=== PATIENT | male | born 1970 | race Caucasian/White ===

== ENCOUNTER → 2017-11-25 | Outpatient (CLI) | payer OTHER | LOC: FIMAGING 16:32 | PROVIDERS: ATTEND Family Medicine | DX: R07.89 Other chest pain (principal) ==

== ENCOUNTER 2018-11-27 16:51 | Emergency (ER) | payer OTHER ==
--- NOTE | 2018-11-27 16:56 | EDPHY ---
H & P Time Seen by Provider: 11/27/18 16:55 HPI/ROS: HPI CHIEF COMPLAINT: Left index finger avulsion laceration. HISTORY OF PRESENT ILLNESS: This patient is a 48-year-old male, otherwise healthy, reports to me his tetanus shot is up-to-date presents emergency room with a left index finger distal tip avulsion laceration. This happened 45 min ago he was cutting a ham at home the knife slipped and he cut his left index finger. He denies any significant other complaints. He does tell me his tetanus shot is up-to-date. He applied liquid Band-Aid to it prior to arrival. Right hand dominant. Left hand laceration. Past Medical History: Denies medical history Past Surgical History: Denies surgical history Social History: Denies drugs alcohol tobacco. 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 Family History: Noncontributory ROS REVIEW OF SYSTEMS: 10 Systems were reviewed and negative with the exception of the elements mentioned in the history of present illness. Exam Constitutional triage nursing summary reviewed, vital signs reviewed, awake/ alert. Eyes normal conjunctivae and sclera, EOMI, PERRLA. HENT normal inspection, atraumatic, moist mucus membranes, no epistaxis, neck supple/ no meningismus, no raccoon eyes. Respiratory clear to auscultation bilaterally, normal breath sounds, no respiratory distress, no wheezing. Cardiovascular rate normal, regular rhythm, no murmur, no edema, distal pulses normal. Gastrointestinal soft, non-tender, no rebound, no guarding, normal bowel sounds, no distension, no pulsatile mass. Genitourinary no CVA tenderness. Musculoskeletal left hand: Index finger, distal aspect there is an avulsion laceration 2 cm x 2 cm. No nail bed involvement. no midline vertebral tenderness, full range of motion, no calf swelling, no tenderness of extremities, no meningismus, good pulses, neurovascularly intact. Skin pink, warm, & dry, no rash, skin atraumatic. Neurologic awake, alert and oriented x 3, AAOx3, moves all 4 extremities equally, motor intact, sensory intact, CN II-XII intact, normal cerebellar, normal vision, normal speech. Psychiatric normal mood/affect. Heme/Lymph/Immune no lymphadenopathy. Differential Diagnosis: Includes but is not limited to in a particular order finger laceration, soft tissue injury, finger contusion, tendon injury, bony abnormality Medical Decision Making: Plan for this patient will copiously irrigated soak his wound out. Will need apply stitches to keep the avulsion laceration tacked down. Will need apply finger splint. Re-evaluation: Laceration Repair Procedure: Verbal Consent was obtained, Under sterile conditions, The patient had lidocaine without epinephrine used approximately 7ccs to local anesthetize the left index finger Laceration. The wound was copiously irrigated with sterile fluid, the wound was explored for foreign bodies there were none visualized, the wound was explored with a sterile glove to the base. There are no deep structures involved, including no arterial injury. THREE 6.O PROLENE interrupted Sutures were placed in this patient's laceration. He had good close approximation of the wound edges. He Tolerated this well. Patient's wound was copiously irrigated and cleaned and soaked. He applies liquid bandage prior to arrival this was removed as best as possible. Patient tolerated a digital block of the left index finger. 4ccs. Lidocaine without epi. Area was prepped and cleaned Prior to block. He had good Anesthesia of the left index finger. Patient has been placed in a finger splint. He understands to have sutures removed in 12-14 days. He understands keep the area very clean, dry and intact. Patient understands to keep the finger protected. Watch for signs of infection. This includes redness, swelling, pus, drainage. Return if questions or concerns. Source: Patient Constitutional: Initial Vital Signs Temperature (C) 36.5 C 11/27/18 17:01 Heart Rate 75 11/27/18 17:01 Respiratory Rate 18 11/27/18 17:01 Blood Pressure 127/87 H 11/27/18 17:01 O2 Sat (%) 95 11/27/18 17:01 O2 Delivery Mode Room Air Allergies/Adverse Reactions: No Known Allergies Allergy (Unverified 11/27/18 17:00) Home Medications: Medication Instructions Recorded [facility] 11/27/18 Departure - Departure Disposition: Home, Routine, Self-Care Clinical Impression: Laceration Condition: Good Instructions: Care For Your Stitches (ED), Laceration (ED) Additional Instructions: 1. Your sutures need to be removed in 12 days. 2. Keep your laceration clean, dry, and protected. 3. Warm soapy water if fine on it in 24 hours. 4. Watch for signs of infection, redness, swelling, pain, drainage. 5. Return to the ER if worsening symptoms, fever, not going well, questions/ concerns. Referrals: James Womack [Primary Care Provider] - As per Instructions
[2018-11-27 18:29] VITALS: BP 119/78
== END 2018-11-27 18:28 | disposition home or self-care (01) ==
LOC: CED 16:51
PROC: 0HQGXZZ Repair Left Hand Skin, External Approach (ICD-10-PCS; principal; 2018-11-27)
DX: S61.211A Laceration without foreign body of left index finger without damage to nail, initial encounter (principal); W26.0XXA Contact with knife, initial encounter; Y92.009 Unspecified place in unspecified non-institutional (private) residence as the place of occurrence of the external cause; Y93.G1 Activity, food preparation and clean up
CPT/HCPCS: 99282-ER; L3925-ER

== ENCOUNTER 2018-12-01 07:11 | Emergency (ER) | payer OTHER ==
[2018-12-01 07:25] VITALS: BP 119/79
--- NOTE | 2018-12-01 08:05 | EDPHY ---
H & P Time Seen by Provider: 12/01/18 07:21 HPI/ROS: HPI Wound check. 48-year-old male by private vehicle. He is right-hand dominant. 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 He was seen in our emergency department this last Friday after sustaining a laceration to the distal radial aspect of his dorsal left index finger. He had a suture repair done at that time. He was removing the bandage that was initially placed this morning. He tore 1 of the sutures out while doing this and had some bleeding. He returns to the emergency department for wound check. He states that the bleeding has stopped. ROS: Constitutional: No fever, no chills. No weakness. Musculoskeletal: No back pain. No neck pain. As above. Skin: No rashes. As above. Neurological: No focal weakness or altered sensation. Past medical history: No significant past medical history. 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 No alcohol. Denies smoking. Physical Exam: General Appearance: Alert, no distress. This patient is responding to questions appropriately and in full sentences. This patient appears well- hydrated and well-nourished. Eyes: Pupils equal and round no pallor or injection. No lid edema, erythema or injection. Left index finger exam: Well-healing laceration. 1 suture was loose but not ruptured. 5.0 or 6.0 sutures were placed. No significant dehiscence or hemorrhage. No erythema, warmth, significant swelling, purulent drainage or other signs of infection. The left index finger is neurovascularly intact Neurological: Motor sensory function is grossly intact. Cranial nerves are normal. Gait is normal. Skin: Warm and dry, no rashes. As above. Extremities are symmetrical. All joints range without pain or impingement. Psychiatric: No agitation. No depression. Database: EKG: Imaging: Procedures: Emergency department course: Triage vital signs reviewed. I discussed treatment options. I did discussed placing 1 or 2 additional sutures, although I told the patient that I felt the wound would heal well as it was as long as he did not stress at significantly. He elected to go the conservative route. A non adherent dressing with Xeroform gauze was placed over the wound as a base. This was followed by sterile fine mesh tube gauze dressing. He was instructed to leave this dressing in place for 2-3 days and keep it dry. She will be given a work note for today. Follow- up and wound care instructions discussed with him. Return to emergency department precautions reviewed. All of his questions were answered. He was discharged from the emergency department in good condition. Differential Diagnosis: The differential diagnosis on this patient includes but is not limited to wound check. Wound dehiscence, wound infection unlikely. This represents a partial list of diagnoses considered. These considerations are based on history, physical exam, past history, reassessment and diagnostic testing. Smoking Status: Former smoker Constitutional: Initial Vital Signs Temperature (C) 36.5 C 12/01/18 07:22 Heart Rate 67 12/01/18 07:22 Respiratory Rate 12 12/01/18 07:22 Blood Pressure 119/79 12/01/18 07:22 O2 Sat (%) 99 12/01/18 07:22 Allergies/Adverse Reactions: No Known Allergies Allergy (Unverified 11/27/18 17:00) Home Medications: Medication Instructions Recorded [facility] 11/27/18 Departure - Departure Disposition: Home, Routine, Self-Care Clinical Impression: Visit for wound check Condition: Good Instructions: Finger Laceration (ED), Care For Your Stitches (ED) Additional Instructions: Read and follow provided instructions. Follow-up with your primary care physician in 1-2 days for re-evaluation. Sutures should be removed in 7-10 days from initial placement. Keep dressing in place for 2-3 days. Return to the emergency department for bleeding, pain, discoloration, swelling or other serious concerns. Stand Alone Forms: Work Excuse
== END 2018-12-01 08:15 | disposition home or self-care (01) ==
LOC: CED 07:11
DX: S61.211D Laceration without foreign body of left index finger without damage to nail, subsequent encounter (principal)
CPT/HCPCS: 99282-ER